=== PATIENT | female | born 1990 | race Caucasian/White ===

== ENCOUNTER 2021-03-29 10:54 | Outpatient (CLI) | payer OTHER ==
--- NOTE | 2021-03-29 13:33 | MRI Report ---
PROCEDURE: Knee RT W/O INDICATIONS: RIGHT KNEE PAIN TECHNIQUE: Noncontrast sagittal PD fast spin echo and T2 fast spin echo with fat saturation, sagittal 3-D gradie nt sequence with fat saturation; coronal T1 spin echo and PD fast spin echo with fat saturation, and axial PD fast spin echo with fat saturation through the knee. COMPARISON: None. Findings: Medial meniscus: Vertical surfacing signal in the posterior horn, concerning for radial tear (series 401, image 9/10). Lateral meniscus: Deficiency of the posterior horn, compatible chronic meniscal tear. LIGAMENTS/TENDONS: Patellar tendon: Intact. Distal quadriceps tendon: Intact. Hoffa's fat pad: No evidence of fibrosis or mass. PCL: Intact. ACL: Intact graft. Lateral collateral ligament complex: No significant abnormality. Posterolateral corner: No significant abnormality. Medial collateral ligament: No significant abnormality.. MARROW: T2 hyperintense/T1 hypointense signal is seen in the lateral tibial plateau as well as the p osterior medial tibial plateau, compatible with compatible with contusion/edema. A 9.2 x 4.8 mm fibrocystic lesion in the lateral tibial plateau, likely reflecting osteochondral inju ry. Tricompartment osteophytosis. CARTILAGE: Signal heterogeneity of the tricompartment hyaline cartilage. A fissure seen in the medial femoral condyle hyaline cartilage (series 901, image 18). Deficiency of the patellar apex hyaline cartilage (series 701, image 27). Muscles: No significant edema or atrophy. Joint effusion/Soriano's cyst: Moderate joint effusion. No substantial Soriano's cyst. Subcutaneous soft tissues: No significant edema. IMPRESSION: 1. Intact ACL graft. 2. Contusion/edema in the lateral tibial plateau as well as the posterior medial tibial plateau. Oste ochondral injury of the lateral tibial plateau. 3. Moderate joint effusion. 4. Degenerative changes of the hyaline cartilage as detailed above. 5. Small radial tear in the posterior horn, medial meniscus. 6. Remote posterior horn, lateral meniscal tear. Reviewed by: Duong Peterson MD on 03/29/2021 1:32 PM PST Approved by: Duong Peterson MD on 03/29/2021 1:32 PM PST Station ID: [id number]
== END 2021-03-29 10:55 | disposition home or self-care (01) ==
LOC: DI 10:54
PROVIDERS: ATTEND Family Medicine
DX: M25.461 Effusion, right knee (principal); M17.11 Unilateral primary osteoarthritis, right knee; S80.01XA Contusion of right knee, initial encounter; S83.241A Other tear of medial meniscus, current injury, right knee, initial encounter; M23.251 Derangement of posterior horn of lateral meniscus due to old tear or injury, right knee